=== PATIENT | male | born 1945 | race Two or more races ===

== ENCOUNTER 2019-09-21 18:21 | Emergency (ER) | payer MEDICARE ==
[~2019-09-21] VITALS: Ht 175.3 cm; Wt 81.2 kg
[2019-09-21 18:25] VITALS: BP 160/85
[2019-09-21] MEDS ORDERED: LIDOCAINE 1% PF 2 ML VIAL. INJ ONE (19:00)
--- NOTE | 2019-09-21 19:04 | PHYS DOC ---
Adult General Chief Complaint Chief Complaint: LACERATION/AVULSION HPI HPI Patient is a 74 year old male patient with history of PTSD who presents the ED today complaining of a laceration on his scalp. Patient states he was setting up a ladder to do some roof work when the ladder fell back and hit him on the head, denies any loss of consciousness. He reports history of SI and currently not suicidal but had thoughts of hurting himself two weeks ago. Review of Systems Review of Systems Constitutional: Denies fever or chills [] Eyes: Denies change in visual acuity, redness, or eye pain [] HENT: Denies nasal congestion or sore throat [] Respiratory: Denies cough or shortness of breath [] Cardiovascular: No additional information not addressed in HPI [] GI: Denies abdominal pain, nausea, vomiting, bloody stools or diarrhea [] : Denies dysuria or hematuria [] Musculoskeletal: Denies back pain or joint pain [] Integument: Scalp laceration Neurologic: Denies headache, focal weakness or sensory changes [] Psych:SI All other systems were reviewed and found to be within normal limits, except as documented in this note. Current Medications Current Medications Current Medications Medications (Trade) Dose Ordered Sig/Debra Start Time Stop Time Status Last Admin Dose Admin Lidocaine HCl (Xylocaine-Mpf 1% 2ml Vial) 2 ml 1X ONCE 09/21/19 19:00 09/21/19 19:01 DC Allergies Allergies Allergies Coded Allergies Type Severity Reaction Last Updated Verified No Known Drug Allergies 09/21/19 No Physical Exam Physical Exam Constitutional: Well developed, well nourished, no acute distress, non-toxic appearance. [] HENT: Normocephalic, atraumatic, bilateral external ears normal, oropharynx moist, no oral exudates, nose normal. [] Eyes: PERRLA, EOMI, conjunctiva normal, no discharge. [] Neck: Normal range of motion, no tenderness, supple, no stridor. [] Cardiovascular:Heart rate regular rhythm, no murmur [] Lungs & Thorax: Bilateral breath sounds clear to auscultation [] Abdomen: Bowel sounds normal, soft, no tenderness, no masses, no pulsatile masses. [] Skin: Warm, dry, Forehead with a laceration approx. 4 cm. Bleeding is well controlled Back: No tenderness, no CVA tenderness. [] Extremities: No tenderness, no cyanosis, no clubbing, ROM intact, no edema. [] Neurologic: Alert and oriented X 3, normal motor function, normal sensory function, no focal deficits noted. [] Psychologic: Flat affect. Current Patient Data Vital Signs Vital Signs Date Time Temp Pulse Resp B/P (MAP) Pulse Ox O2 Delivery O2 Flow Rate FiO2 09/21/19 18:25 98.0 68 20 160/85 (110) 97 Room Air 98.0 EKG EKG [] Radiology/Procedures Radiology/Procedures Laceration/Wound Repair Wound Location: forehead Wound's Depth, Shape: horizontal Wound Length (cm): approx 4 cm Wound Explored: clean Irrigated w/ Saline (ccs): 20 Betadine Prep?: Y Anesthesia: 1% of lidocaine Volume Anesthetic (ccs): Approximately 2 cc Wound Repaired With: 9 jasmin Progress : Wound was left open to air Course & Med Decision Making Course & Med Decision Making Pertinent Labs and Imaging studies reviewed. (See chart for details) This is a 74-year-old male who presents with forehead laceration. Patient had a ladder fall on his head has hx of SI last SI thought 2 weeks ago. Love in the Ed and talked to patient. Scalp laceration was closed by me as noted in procedures with jasmin. Tetanus is up-to-date. Wound care instructions and return precautions provided. Dragon Disclaimer Dragon Disclaimer This electronic medical record was generated, in whole or in part, using a voice recognition dictation system. Departure Departure Impression: Primary Impression: Scalp laceration Additional Impression: Head contusion Disposition: 01 HOME, SELF-CARE Condition: STABLE Patient Instructions: Contusion, [id number], Laceration Care, Adult Additional Instructions: You have head laceration that was closed with jasmin. Keep the area clean and dry. You can shower and wash your hair. Do not soak or scrub the region. You can take [id number] Tylenol or Motrin as needed for pain. Have the jasmin removed in 10 days. Monitor the area for any signs of infection including but not limited to increased redness, warmth, yellow drainage from the area and return to the ED if they occur. Please return to the ED at any point you have signs of worsening head injury symptoms including but not limited to confusion, excessive sleepiness, uncontrolled vomiting, uncontrolled pain or any other concerning symptoms. Problem Qualifiers Primary Impression: Scalp laceration Encounter type: initial encounter Qualified Codes: S01.01XA - Laceration without foreign body of scalp, initial encounter Additional Impression: Head contusion Encounter type: initial encounter Contusion of head detail: scalp Qualified Codes: S00.03XA - Contusion of scalp, initial encounter YULI LOUIS APRN Sep 21, 2019 19:04
== END 2019-09-21 19:40 | disposition home or self-care (01) ==
LOC: ER 18:21
DX: S01.01XA Laceration without foreign body of scalp, initial encounter (principal); W20.8XXA Other cause of strike by thrown, projected or falling object, initial encounter; Y93.89 Activity, other specified; Y92.89 Other specified places as the place of occurrence of the external cause; Y99.0 Civilian activity done for income or pay
CPT/HCPCS: 12002; 99283; J3490